=== PATIENT | male | born 1970 | race American Indian/Alaskan Native ===

== ENCOUNTER 2020-12-24 14:28 | Emergency (ER) | payer SELFPAY ==
[2020-12-24 14:34] VITALS: BP 142/87
--- NOTE | 2020-12-24 14:47 | Emergency Department Report ---
ED ENT HPI - General Chief complaint: Dental/Oral Stated complaint: TOOTHACHE Time Seen by Provider: 12/24/20 14:39 Source: patient Mode of arrival: Ambulatory Limitations: No Limitations - History of Present Illness Initial comments: Patient is a 50-year-old male presents emergency room complaints of left lower dental pain that began 2 weeks ago. He states he last saw dentist in 2019. He states he has noticed some swelling to the gums. He denies any facial swelling, difficulty swallowing, difficulty breathing, fever, nausea, vomiting, chills. P ast medical history of hypertension and COVID-19. No allergies to medications. - Related Data Home Medications Medication Instructions Recorded Confirmed Last Taken Omeprazole 10 mg PO 12/24/20 12/24/20 Unknown atenoloL [Tenormin] 25 mg PO 12/24/20 Unknown Previous Rx's Medication Instructions Recorded Last Taken Type Chlorhexidine Mouthwash [Peridex] 15 ml MM BID #1 bottle 12/24/20 Unknown Rx Naproxen 375 mg PO BID PRN #14 tablet 12/24/20 Unknown Rx Penicillin Vk [Veetids TAB] 500 mg PO QID 7 Days #56 tablet 12/24/20 Unknown Rx Allergies Allergy/AdvReac Type Severity Reaction Status Date / Time No Known Allergies Allergy Unverified 12/24/20 14:34 ED Dental HPI - General Chief complaint: Dental/Oral Stated complaint: TOOTHACHE Time Seen by Provider: 12/24/20 14:39 Source: patient Mode of arrival: Ambulatory Limitations: No Limitations - Related Data Home Medications Medication Instructions Recorded Confirmed Last Taken Omeprazole 10 mg PO 12/24/20 12/24/20 Unknown atenoloL [Tenormin] 25 mg PO 12/24/20 Unknown Previous Rx's Medication Instructions Recorded Last Taken Type Chlorhexidine Mouthwash [Peridex] 15 ml MM BID #1 bottle 12/24/20 Unknown Rx Naproxen 375 mg PO BID PRN #14 tablet 12/24/20 Unknown Rx Penicillin Vk [Veetids TAB] 500 mg PO QID 7 Days #56 tablet 12/24/20 Unknown Rx Allergies Allergy/AdvReac Type Severity Reaction Status Date / Time No Known Allergies Allergy Unverified 12/24/20 14:34 ED Review of Systems ROS: Stated complaint: TOOTHACHE Other details as noted in HPI Comment: All other systems reviewed and negative ED Past Medical Hx - Past Medical History Hx Hypertension: Yes Additional medical history: High cholestrol - Medications Home Medications: Home Medications Medication Instructions Recorded Confirmed Last Taken Type Chlorhexidine Mouthwash [Peridex] 15 ml MM BID #1 bottle 12/24/20 Unknown Rx Naproxen 375 mg PO BID PRN #14 tablet 12/24/20 Unknown Rx Omeprazole 10 mg PO 12/24/20 12/24/20 Unknown History Penicillin Vk [Veetids TAB] 500 mg PO QID 7 Days #56 tablet 12/24/20 Unknown Rx atenoloL [Tenormin] 25 mg PO 12/24/20 Unknown History ED Physical Exam - General Limitations: No Limitations General appearance: alert, in no apparent distress - Head Head exam: Present: atraumatic, normocephalic - Eye Eye exam: Present: normal appearance - ENT ENT exam: Present: mucous membranes moist, other (there is a 2 cm area of edema and induration present to the gumline adjacent to the left lower back molar, uvula is midline, no uvular edema or deviation, no trismus, no tongue elevation, no muffled voice, no facial edema, no submandibular edema) - Respiratory Respiratory exam: Absent: respiratory distress, accessory muscle use - Neurological Exam Neurological exam: Present: alert, oriented X3 - Psychiatric Psychiatric exam: Present: normal affect, normal mood - Skin Skin exam: Present: warm, dry, intact ED Course Vital Signs 12/24/20 14:31 Temperature 98 F Pulse Rate 82 Respiratory 16 Rate Blood Pressure 142/87 [Left] O2 Sat by Pulse 99 Oximetry ED Medical Decision Making - Medical Decision Making Patient is a 50-year-old male presents emergency room complaints of left lower dental pain that began 2 weeks ago. He states he last saw dentist in 2019. He states he has noticed some swelling to the gums. He denies any facial swelling, difficulty swallowing, difficulty breathing, fever, nausea, vomiting, chills. Past medical history of hypertension and COVID-19. No allergies to medications. Vitals are normal. On exam:there is a 2 cm area of edema and induration present to the gumline adjacent to the left lower back molar, uvula is midline, no uvular edema or deviation, no trismus, no tongue elevation, no muffled voice, no facial edema, no submandibular edema. Examination appears consistent with dental abscess, no clinical signs of facial cellulitis, facial abscess, Alfonzo's. Patient given prescription for medication. Advised patient Please take medication as prescribed. Follow-up with a dentist. Return to emergency room for any new or worsening symptoms. Critical care attestation.: If time is entered above; I have spent that time in minutes in the direct care of this critically ill patient, excluding procedure time. ED Disposition Clinical Impression: Dental abscess Disposition: HOME / SELF CARE / HOMELESS Is pt being admited?: No Does the pt Need Aspirin: No Condition: Stable Instructions: Dental Abscess Additional Instructions: Please take medication as prescribed. Follow-up with a dentist. Return to emergency room for any new or worsening symptoms. Prescriptions: Naproxen 375 mg PO BID PRN #14 tablet PRN Reason: pain Chlorhexidine Mouthwash [Peridex] 15 ml MM BID #1 bottle Penicillin Vk [Veetids TAB] 500 mg PO QID 7 Days #56 tablet Referrals: [facility] [Outside] - 2-3 Days [facility] [Outside] - 2-3 Days Time of Disposition: 14:46 Print Language: CANADI[place]
== END 2020-12-24 15:21 | disposition home or self-care (01) ==
LOC: ED 14:28
DX: K04.7 Periapical abscess without sinus (principal); I10 Essential (primary) hypertension; E78.00 Pure hypercholesterolemia, unspecified; Z79.899 Other long term (current) drug therapy
CPT/HCPCS: 99282